=== PATIENT | female | born 1950 | race Caucasian/White ===

== ENCOUNTER 2021-10-30 14:33 | Outpatient (CLI) | payer MEDICARE ==
[~2021-10-30 14:33] MED LIST: Magnevist 469MG/ML 20 ML VIAL ONE
== END 2021-10-30 14:34 | disposition home or self-care (01) ==
LOC: CSHMRI 14:33
PROVIDERS: ATTEND Neurological Surgery
DX: Q28.2 Arteriovenous malformation of cerebral vessels (principal); Z95.818 Presence of other cardiac implants and grafts; R90.82 White matter disease, unspecified
CPT/HCPCS: 70553; 82565; A9579

== ENCOUNTER 2022-12-02 07:54 | Outpatient (CLI) | payer MEDICARE | END 2022-12-02 07:55 | disposition home or self-care (01) | LOC: CSHMAMMO 07:54 | PROVIDERS: ATTEND Internal Medicine | DX: Z12.31 Encounter for screening mammogram for malignant neoplasm of breast (principal); Z80.3 Family history of malignant neoplasm of breast; Z91.89 Other specified personal risk factors, not elsewhere classified | CPT/HCPCS: 77063; 77067 ==

== ENCOUNTER 2024-04-09 12:30 | Outpatient (CLI) | payer MEDICARE | END 2024-04-09 12:31 | disposition home or self-care (01) | LOC: CSHMRI 12:30 | PROVIDERS: ATTEND Neurological Surgery | DX: Q28.2 Arteriovenous malformation of cerebral vessels (principal); R90.82 White matter disease, unspecified; J34.89 Other specified disorders of nose and nasal sinuses | CPT/HCPCS: 70553; 76376 ==

== ENCOUNTER 2024-04-21 15:20 | Outpatient (CLI) | payer MEDICARE | END 2024-04-21 15:21 | disposition home or self-care (01) | LOC: CSHCP 15:20 | PROVIDERS: ATTEND Internal Medicine | DX: R05.3 Chronic cough (principal); R94.2 Abnormal results of pulmonary function studies | CPT/HCPCS: 94060; 94664; 94726; 94729; 94760 ==